=== PATIENT | female | born 1945 | race Asian ===

== ENCOUNTER 2020-06-20 08:22 | Emergency (ER) | payer OTHER ==
[~2020-06-20] VITALS: Ht 165.1 cm; Wt 72.6 kg
[2020-06-20 08:22] VITALS: BP 0/0; TEMP 96.8
== END 2020-06-20 10:06 | disposition expired ==
LOC: ED 08:24
PROC: 5A12012 Performance of Cardiac Output, Single, Manual (ICD-10-PCS; principal; 2020-06-20)
DX: I46.9 Cardiac arrest, cause unspecified (principal)
CPT/HCPCS: 92950; 96361; 96374; 96375; 96376; 99285; J0171; J1815; J3490; J7060